=== PATIENT | male | born 1995 | race American Indian/Alaskan Native ===

== ENCOUNTER 2020-01-13 15:04 | Emergency (ER) | payer MEDICAID, SELFPAY ==
[2020-01-13 15:13] VITALS: BP 121/70; PULSE 103; RESP 18; O2SAT 98; BMI 19.8
[2020-01-13 15:20] VITALS: BP 126/79; PULSE 76; RESP 18; TEMP 36.9; O2SAT 97; BMI 26.6
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
[2020-01-13 16:15] VITALS: BP 126/79; PULSE 76; RESP 18; TEMP 36.9; O2SAT 97
== END 2020-01-13 16:19 | disposition home or self-care (01) ==
PROVIDERS: Emergency Provider Nurse Practitioner Family
DX: S00.81XA Abrasion of other part of head, initial encounter (principal); Y04.0XXA Assault by unarmed brawl or fight, initial encounter; Y92.019 Unspecified place in single-family (private) house as the place of occurrence of the external cause
CPT/HCPCS: 99201